=== PATIENT | male | born 1980 | race Native Hawaiian/Other Pacific Islander ===

== ENCOUNTER 2018-12-17 16:40 | Emergency (ER) | payer BC ==
[~2018-12-17] VITALS: Ht 177.8 cm; Wt 93.9 kg
[2018-12-17 16:45] VITALS: BP 142/71; TEMP 98.1
[2018-12-17 18:36] LABS: PLATELET COUNT 158 K/uL (142-355)
[2018-12-17 18:45] LABS: POTASSIUM 3.9 mmol/L (3.6-5.2)
== END 2018-12-17 20:00 | disposition home or self-care (01) ==
LOC: ED 16:40
PROVIDERS: Family Medicine
DX: N20.1 Calculus of ureter (principal); N23 Unspecified renal colic
CPT/HCPCS: 36415; 80053; 81000; 85027; 96360; 96374; 99284; J1885

== ENCOUNTER 2018-12-20 17:01 | Emergency (ER) | payer BC ==
[~2018-12-20] VITALS: Ht 177.8 cm; Wt 93.9 kg
[2018-12-20 17:32] VITALS: TEMP 98.1
[2018-12-20 18:32] VITALS: BP 134/77
== END 2018-12-20 18:34 | disposition home or self-care (01) ==
LOC: ED 17:01
DX: M54.5 Low back pain (principal); N20.0 Calculus of kidney
CPT/HCPCS: 96372; 99282; J1885

== ENCOUNTER 2021-12-22 08:45 | Emergency (ER) | payer OTHER ==
[~2021-12-22] VITALS: Ht 177.8 cm; Wt 104.3 kg
[2021-12-22 10:17] VITALS: BP 138/75; TEMP 97.4
== END 2021-12-22 10:17 | disposition home or self-care (01) ==
LOC: ED 08:45
DX: S63.592A Other specified sprain of left wrist, initial encounter (principal); W17.89XA Other fall from one level to another, initial encounter; Y92.89 Other specified places as the place of occurrence of the external cause
CPT/HCPCS: 96372; 99283; J1885

== ENCOUNTER 2022-05-27 16:01 | Emergency (ER) | payer OTHER ==
[~2022-05-27] VITALS: Ht 177.8 cm; Wt 98.0 kg
[2022-05-27 16:05] VITALS: TEMP 97.9
[2022-05-27 17:04] VITALS: BP 118/72
== END 2022-05-27 17:28 | disposition home or self-care (01) ==
LOC: ED 16:01
DX: S61.442A Puncture wound with foreign body of left hand, initial encounter (principal); W29.4XXA Contact with nail gun, initial encounter; Y92.89 Other specified places as the place of occurrence of the external cause
CPT/HCPCS: 90471; 90715; 96372; 99283; J1885